=== PATIENT | male | born 1985 | race Caucasian/White ===

== ENCOUNTER 2017-09-24 07:19 | Emergency (ER) ==
[2017-09-24 07:26] VITALS: BP 116/90; TEMP 97.5; BMI 21.2
--- NOTE | 2017-09-24 07:31 | ED.PDOC ---
General ED Provider: Dr. BENY REHMAN Chief Complaint: Nausea/Vomiting Stated Complaint: 31 y/o Male patient presents with CC of Nausea and Vomiting- green bilious. Onset on afternoon of 09/23/17 and has 7-8 episodes. Also c/o pain in uppper back since emesis. Traveled to [facility] yesterday for Physician visit at [facility]. Was feeling well then but started to feel badly late yesterday afternoon. Time Seen by Physician: 07:20 Mode of Arrival: Walk-In Information Source: Patient, Family Exam Limitations: No limitations Primary Care Provider: BENY EDWARDS Nursing and Triage Documentation Reviewed and Agree: Yes Reviewed sepsis parameters & appropriate labs ordered?: No System Inflammatory Response Syndrome: Not Applicable Sepsis Protocol: For patient's 13 years and over: Temp is 96.8 and below OR 101 and greater Pulse >90 BPM Resp >20/minute Acutely Altered Mental Status Are patient's symptoms suggestive of a new infection, such as: -Pneumonia -Skin, Soft Tissue -Endocarditis -UTI -Bone, Joint Infection -Implantable Device -Acute Abdominal Infection -Wound Infection -Meningitis -Blood Stream Catheter Infection -Unknown System Inflammatory Response Syndrome: Not Applicable GI Complaint Exam - Vomiting/Diarrhea Complaint/Exam Onset/Duration: 1: 00 AM to day(7-8 hours ) Symptoms Are: Still present Episodes of Vomiting over last 24 Hours: 7 Episodes of Diarrhea Over Last 24 Hours: 0 Initial Severity: Moderate Current Severity: Severe Character of Vomiting: Reports: Bilious Alleviating: Reports: None Associated Signs and Symptoms: Reports: Dizziness, Abdominal pain (Mid Back ( Thoracic) Region ) Related History: Reports: Similar episode (None recent) Non-GI Risk Factors: Reports: None Surgical Obstruction Risk Factors: Reports: None Related Surgical History: Reports: None (Kidney Transplant) Abdominal Findings: Present: None Differential Diagnoses: Dehydration, UTI, Other (Viral Gastroenteritis/Flu Syndrome) Review of Systems - Review Of Systems Constitutional: Reports: Weakness, Loss of appetite Eyes: Reports: No symptoms Ears, Nose, Mouth, Throat: Reports: No symptoms Respiratory: Reports: No symptoms Cardiac: Reports: No symptoms GI: Reports: Nausea, Poor appetite, Poor fluid intake, Vomiting : Reports: No symptoms Musculoskeletal: Reports: Back pain Skin: Reports: No symptoms Neurological: Reports: Weakness Endocrine: Reports: No symptoms Hematologic/Lymphatic: Reports: No symptoms All Other Systems: Reviewed and Negative Past Medical History - Past Medical History Previously Healthy: No (Hx Chronic Kidney Disease/prev renal transplant) Endocrine: Reports: None Cardiovascular: Reports: None Respiratory: Reports: None Hematological: Reports: None Gastrointestinal: Reports: None Genitourinary: Reports: CKD, Other (renal transplant) Neuro/Psych: Reports: Migraine Musculoskeletal: Reports: None Cancer: Reports: None Other Pertinent Past Medical History: renal transplant, Recent Strep Throat - Surgical History General Surgical History: Reports: Other (Renal transplant as child, on Immunosupression), Unknown - Family History Family History: Reports: Unknown - Social History Smoking Status: Never smoker Hx Substance Use: No Alcohol Screening: None - Immunizations Tetanus Shot up to Date: Yes Pneumococcal Vaccine up to Date: No Physical Exam - Physical Exam Appearance: Ill-appearing, Thin Ill-appearing: Moderate Pain Distress: Moderate Eyes: LETICIA, EOMI, Conjunctiva clear ENT: Ears normal Neck: Supple Respiratory: Airway patent Cardiovascular: RRR, Pulses normal, No rub, No murmur GI/: Soft, Nontender, No masses, Bowel sounds normal Musculoskeletal: Normal strength, ROM intact, No edema, No calf tenderness Skin: Warm, Dry Neurological: Motor intact Psychiatric: Affect appropriate, Mood appropriate Re-Evaluation - Re-Evaluation Time of Re-Evaluation: 11:00 Status: Improved Vital Signs Stable: Yes Lungs: Clear Skin: Warm and Dry Neuro: Alert and Oriented X3 CV: RRR - Re-Evaluation Time of Re-Evaluation: 14:00 Status: Improved Vital Signs Stable: Yes Pain Level: Recurrent upper back muscular pain. Nausea better Appearance: NAD Skin: Warm and Dry Neuro: Alert and Oriented X3 CV: Other (Sipping on liquids keepin them down) Critical Care Note - Critical Care Note Total Time (mins): 120 Course - Course Hematology/Chemistry: 09/24/17 13:45 09/24/17 13:45 Orders, Labs, Meds: Lab Review 09/24/17 09/24/17 09/24/17 07:30 07:48 07:48 WBC 17.37 H RBC 6.18 H Hgb 17.1 Hct 50.0 MCV 80.9 MCH 27.7 MCHC 34.2 RDW Coeff of Ivonne 13.0 Plt Count 239 Immature Gran % (Auto) 0.6 Neut % (Auto) 84.0 Lymph % (Auto) 8.7 L [place] % (Auto) 5.9 Eos % (Auto) 0.5 Baso % (Auto) 0.3 Immature Gran # (Auto) 0.1 Neut # 14.6 H Lymph # 1.5 [place] # 1.0 Eos # 0.1 Baso # 0.1 Sodium 141 Potassium 3.9 Chloride 103 Carbon Dioxide 23 Anion Gap 18.9 BUN 14 Creatinine 1.40 H Estimated GFR (MDRD) 60.00 BUN/Creatinine Ratio 10.00 Glucose 105 H Calcium 10.5 H Total Bilirubin 0.7 AST 15 ALT 14 Alkaline Phosphatase 70 Total Protein 8.6 H Albumin 4.8 Globulin 3.8 Albumin/Globulin Ratio 1.26 Lipase 11 Urine Color Urine Clarity Urine pH Ur Specific [place] Urine Protein Urine Glucose (UA) Urine Ketones Urine Blood Urine Nitrite Urine Bilirubin Urine Urobilinogen Ur Leukocyte Esterase Urine Microscopic RBC Urine Microscopic WBC Ur Squamous Epith Cells Influenza A (Rapid) Negative by naat Influenza B (Rapid) Negative by naat 09/24/17 09/24/17 09/24/17 12:34 13:45 13:45 WBC 9.94 D RBC 4.99 Hgb 13.8 L D Hct 41.1 L D MCV 82.4 MCH 27.7 MCHC 33.6 RDW Coeff of Ivonne 13.0 Plt Count 168 Immature Gran % (Auto) 0.5 Neut % (Auto) 90.3 Lymph % (Auto) 3.2 L [place] % (Auto) 5.7 Eos % (Auto) 0.2 Baso % (Auto) 0.1 Immature Gran # (Auto) 0.1 Neut # 9.0 H Lymph # 0.3 L [place] # 0.6 Eos # 0.0 Baso # 0.0 Sodium 143 Potassium 4.6 Chloride 111 H Carbon Dioxide 23 Anion Gap 13.6 BUN 15 Creatinine 1.22 H Estimated GFR (MDRD) 70.00 BUN/Creatinine Ratio 12.29 Glucose 122 H Calcium 8.4 Total Bilirubin AST ALT Alkaline Phosphatase Total Protein Albumin Globulin Albumin/Globulin Ratio Lipase Urine Color Yellow Urine Clarity Clear Urine pH 5.5 Ur Specific [place] 1.025 Urine Protein 1+ Urine Glucose (UA) Negative Urine Ketones Negative Urine Blood Negative Urine Nitrite Negative Urine Bilirubin Negative Urine Urobilinogen 0.2 Ur Leukocyte Esterase Negative Urine Microscopic RBC 0-2 Urine Microscopic WBC 0-2 Ur Squamous Epith Cells 0-2 Influenza A (Rapid) Influenza B (Rapid) Orders Category Date Time Status EKG-(ED ONLY) Stat CARDIO 09/24/17 13:40 Completed BMP [BASIC METABOLIC PANEL] Stat LAB 09/24/17 13:45 Completed CBC W/ AUTO DIFF Stat LAB 09/24/17 07:48 Completed CBC W/ AUTO DIFF Stat LAB 09/24/17 13:45 Completed CMP [COMPREHENSIVE METABOLIC PANEL] Stat LAB 09/24/17 07:48 Completed FLU A/B MOLECULAR Stat LAB 09/24/17 07:30 Completed LIPASE Stat LAB 09/24/17 07:48 Completed MOLECULAR GROUP A STREP Stat LAB 09/24/17 07:30 Completed UA [URINALYSIS C & S IF INDICATED] Stat LAB 09/24/17 12:34 Completed Dextrose 5 % and 0.9 % NaCl [Dextrose 5%-Ns IV Solution MEDS 09/24/17 09:30 Discontinued ] 1,000 ml Vitamin B-1 Inj [Thiamine] 100 mg Mvi, Adult No.1 with Vit K [Infuvite Adult] 10 ml Folic Acid 1 mg IV 250 mls/hr Dextrose 5 % and 0.9 % NaCl [Dextrose 5%-Ns IV Solution MEDS 09/24/17 16:06 Ordered ] 1,000 ml Vitamin B-1 Inj [Thiamine] 100 mg Mvi, Adult No.1 with Vit K [Infuvite Adult] 10 ml Folic Acid 1 mg IV 500 mls/hr Dextrose 5 % and 0.9 % NaCl [Dextrose 5%-Ns IV Solution MEDS 09/24/17 13:34 Active ] 1,000 ml IV BOLUS Famotidine Inj [Pepcid] MEDS 09/24/17 08:33 Discontinued 20 mg .ROUTE .STK-MED ONE Famotidine Inj [Pepcid] 20 mg MEDS 09/24/17 08:19 Discontinued 0.9 % Sodium Chloride [Sodium Chloride] 50 ml IV ONCE Hydrocortisone Sod Succ/Pf [Solu-Cortef 100 mg] MEDS 09/24/17 10:49 Discontinued 100 mg IVP ONCE STA Hydromorphone HCl [Dilaudid 1 mg/ml Syringe] MEDS 09/24/17 08:10 Discontinued 0.5 mg IVP ONCE STA Hydromorphone HCl [Dilaudid 1 mg/ml Syringe] MEDS 09/24/17 14:25 Discontinued 0.5 mg IVP ONCE STA Hydromorphone HCl [Dilaudid 1 mg/ml Syringe] MEDS 09/24/17 10:32 Discontinued 1 mg IVP ONCE STA Ondansetron HCl/Pf [Zofran 4 mg/2 ml] MEDS 09/24/17 08:16 Discontinued 4 mg IVP ONCE ONE Ondansetron HCl/Pf [Zofran 4 mg/2 ml] MEDS 09/24/17 13:37 Discontinued 4 mg IVP ONCE STA Ondansetron HCl/Pf [Zofran 4 mg/2 ml] MEDS 09/24/17 07:39 Discontinued 4 mg IVP Q6H PRN Pantoprazole Sodium [Protonix IV] MEDS 09/24/17 10:34 Discontinued 40 mg IVP ONCE STA Sodium Chloride 0.9% [Sodium Chloride] 1,000 ml MEDS 09/24/17 07:40 Discontinued IV BOLUS Sumatriptan Succinate [Imitrex] MEDS 09/24/17 12:52 Discontinued 6 mg SUBCUT ONCE STA Medications Generic Name Dose Route Start Last Admin Trade Name Freq PRN Reason Stop Dose Admin Dextrose/Sodium Chloride 1,000 mls @ 250 mls/hr 09/24/17 13:34 09/24/17 13:47 Dextrose 5%-Ns Iv Solution IV 09/24/17 17:33 250 mls/hr BOLUS STA Administration Thiamine HCl 100 mg/ 1,011.2 mls @ 500 mls/hr 09/24/17 16:06 Multivitamins/Minerals 10 ml/ IV Folic Acid 1 mg/ Dextrose/ .Q2H2M SHANON Sodium Chloride Discontinued Medications Generic Name Dose Route Start Last Admin Trade Name Freq PRN Reason Stop Dose Admin Hydrocortisone Sodium Succinate 100 mg 09/24/17 10:49 09/24/17 10:57 Solu-Cortef 100 Mg IVP 09/24/17 10:50 100 mg ONCE STA Administration Hydromorphone HCl 0.5 mg 09/24/17 08:10 09/24/17 08:31 Dilaudid 1 Mg/Ml Syringe IVP 09/24/17 08:11 0.5 mg ONCE STA Administration Hydromorphone HCl 1 mg 09/24/17 10:32 09/24/17 10:39 Dilaudid 1 Mg/Ml Syringe IVP 09/24/17 10:33 1 mg ONCE STA Administration Hydromorphone HCl 0.5 mg 09/24/17 14:25 09/24/17 14:48 Dilaudid 1 Mg/Ml Syringe IVP 09/24/17 14:26 0.5 mg ONCE STA Administration Sodium Chloride 1,000 mls @ 500 mls/hr 09/24/17 07:40 09/24/17 07:46 Sodium Chloride IV 09/24/17 09:39 500 mls/hr BOLUS STA Administration Famotidine 20 mg/ Sodium 52 mls @ 100 mls/hr 09/24/17 08:19 09/24/17 08:39 Chloride IV 09/24/17 08:50 2 mls/hr ONCE STA Administration Thiamine HCl 100 mg/ 1,011.2 mls @ 250 mls/hr 09/24/17 09:30 09/24/17 09:47 Multivitamins/Minerals 10 ml/ IV 250 mls/hr Folic Acid 1 mg/ Dextrose/ .Q4H3M SHANON Administration Sodium Chloride Ondansetron HCl 4 mg 09/24/17 07:39 09/24/17 07:46 Zofran 4 Mg/2 Ml IVP 4 mg Q6H PRN Administration Nausea / Vomiting Ondansetron HCl 4 mg 09/24/17 08:16 09/24/17 08:28 Zofran 4 Mg/2 Ml IVP 09/24/17 08:17 4 mg ONCE ONE Administration Ondansetron HCl 4 mg 09/24/17 13:37 09/24/17 13:46 Zofran 4 Mg/2 Ml IVP 09/24/17 13:38 4 mg ONCE STA Administration Pantoprazole Sodium 40 mg 09/24/17 10:34 09/24/17 10:39 Protonix Iv IVP 09/24/17 10:35 40 mg ONCE STA Administration Sumatriptan Succinate 6 mg 09/24/17 12:52 09/24/17 13:00 Imitrex SUBCUT 09/24/17 12:53 6 mg ONCE STA Administration Vital Signs: Temp Pulse Resp BP Pulse Ox 09/24/17 07:19 97.5 F L 105 H 20 116/90 100 Departure - Departure Time of Disposition: 17:00 Disposition: HOME SELF-CARE Discharge Problem: Gastroenteritis, Dehydration Instructions: Dehydration (ED), Gastroenteritis (ED) Condition: Good Pt referred to PMD for follow-up: Yes (1week) IPMP verified?: No Prescriptions: Diazepam 2 mg PO 2-3XD PRN #20 tablet PRN Reason: Back pain and muscle spasm Famotidine [Pepcid] 20 mg PO BIDAC #20 tablet Ondansetron [Zofran Odt] 4 mg PO Q8H #10 tab.rapdis Allergies/Adverse Reactions: Allergies No Known Allergies Allergy (Verified 09/24/17 07:29) Home Medications: Ambulatory Orders Hydrocortisone [Cortef] 2 tab PO TID 06/21/13 Mycophenolate Mofetil [Cellcept] 500 mg PO BID 06/21/13 Tacrolimus [Prograf] 3 tab PO BID 06/21/13 Sumatriptan Succinate [Imitrex] 50 mg PO BID PRN 01/08/14 Hydrocodone/Acetaminophen [Lortab 5-325 mg Tablet] 5 - 325 mg PO Q6H PRN Diazepam 2 mg PO 2-3XD PRN #20 tablet 09/24/17 Famotidine [Pepcid] 20 mg PO BIDAC #20 tablet 09/24/17 Ondansetron [Zofran Odt] 4 mg PO Q8H #10 tab.rapdis 09/24/17 Disposition Discussed With: Patient, Family
[2017-09-24] MEDS ORDERED: ZOFRAN 4 MG/2 ML IVP PRN (07:39)
[2017-09-24] MEDS ORDERED: SODIUM CHLORIDE 1,000 ML IV STA ×2 (07:40→08:54)
[2017-09-24] MEDS ORDERED: DILAUDID 1 MG/ML SYRINGE IVP STA ×3 (08:10→14:25)
[2017-09-24] MEDS ORDERED: ZOFRAN 4 MG/2 ML IVP ONE (08:16)
[2017-09-24] MEDS ORDERED: PEPCID 20 MG in SODIUM CHLORIDE 50 ML IV STA (08:19)
[2017-09-24] MEDS ORDERED: PEPCID ONE (08:33)
[2017-09-24] MEDS ORDERED: THIAMINE 100 MG, INFUVITE ADULT 10 ML, FOLIC ACID 1 MG in DEXTROSE 5%-NS IV SOLUTION 1,... IV SCH ×2 (09:30→16:06)
[2017-09-24] MEDS ORDERED: PROTONIX IV IVP STA (10:34)
[2017-09-24] MEDS ORDERED: SOLU-CORTEF 100 MG IVP STA (10:49)
[2017-09-24] MEDS ORDERED: IMITREX SUBCUT STA (12:52)
[2017-09-24] MEDS ORDERED: DEXTROSE 5%-NS IV SOLUTION 1,000 ML IV STA (13:34)
[2017-09-24] MEDS ORDERED: ZOFRAN 4 MG/2 ML IVP STA (13:37)
== END 2017-09-24 17:15 | disposition home or self-care (01) ==
LOC: ED 07:19
DX: K52.9 Noninfective gastroenteritis and colitis, unspecified (principal); E86.0 Dehydration; N18.9 Chronic kidney disease, unspecified; Z94.0 Kidney transplant status; Z79.899 Other long term (current) drug therapy
CPT/HCPCS: 36415; 80048; 80053; 81001; 83690; 85025; 87502; 87651; 93005; 93010; 96361; 96365; 96372; 96374; 96375; 96376; 99284

== ENCOUNTER 2018-04-24 12:53 | Emergency (ER) ==
[2018-04-24 12:54] VITALS: BMI 21.2
[2018-04-24 13:01] VITALS: BP 144/92; TEMP 98.2
[2018-04-24] MEDS ORDERED: ZOFRAN 4 MG/2 ML IM STA ×2 (13:03→15:06)
[2018-04-24] MEDS ORDERED: MORPHINE 4 MG/ML SYRINGE IM STA ×2 (13:03→14:53)
--- NOTE | 2018-04-24 14:16 | CT ---
EXAM: CT abdomen pelvis without contrast HISTORY: Left lower quadrant pain. Patient has renal transplant and prior cholecystectomy COMPARISON: CT abdomen pelvis 05/14/2015 and 01/08/2014 TECHNIQUE: Serial axial images of the abdomen pelvis were performed from the lung bases through the inferior pelvis without contrast. These were viewed in multiple planes. FINDINGS: The lung bases are clear. Evaluation is limited due to lack of contrast. There is bilateral renal atrophy. There is a 2.2 cm low attenuation lesion in the left kidney with indeterminate Hounsfield units. This is a developed s ayanna 2014. The liver is unremarkable. The bladder has been resected. The spleen is normal. Adrena l glands are unremarkable. The pancreas is unremarkable. The stomach is mildly distended. Transplan t kidney is unremarkable. The small bowel in the abdomen pelvis demonstrates scattered low attenuation fluid throughout the sma ll bowel. The colon demonstrates diverticulosis without diverticulitis. The appendix is not visuali zed. Urinary bladder is mildly distended. The prostate is mildly enlarged. The osseous structures are unremarkable. IMPRESSION: 1. No acute intra-abdominal abnormality to account for patient's symptoms. 2. Renal atrophy with new indeterminate lesion in the left kidney. Ultrasound is recommended to fur ther evaluate. Transplant kidney is unremarkable. 3. Diverticulosis without diverticulitis.
[2018-04-24] MEDS ORDERED: ZOFRAN 4 MG/2 ML IVP STA (14:52)
--- NOTE | 2018-04-24 14:54 | ED.PDOC ---
General ED Provider: Dr. DORI MEDINA Chief Complaint: Abdominal Pain Stated Complaint: LLQ ABDOMINAL Time Seen by Physician: 13:00 (SEEN WITH VIJAYA ) Mode of Arrival: Walk-In Information Source: Patient Exam Limitations: No limitations Primary Care Provider: BENY EDWARDS Nursing and Triage Documentation Reviewed and Agree: Yes Does patient meet sepsis criteria?: No System Inflammatory Response Syndrome: Not Applicable Sepsis Protocol: For patient's 13 years and over: Temp is 96.8 and below OR 101 and greater Pulse >90 BPM Resp >20/minute Acutely Altered Mental Status Are patient's symptoms suggestive of a new infection, such as: -Pneumonia -Skin, Soft Tissue -Endocarditis -UTI -Bone, Joint Infection -Implantable Device -Acute Abdominal Infection -Wound Infection -Meningitis -Blood Stream Catheter Infection -Unknown GI Complaint Exam - Abdominal Pain Complaint/Exam Onset: Gradual Duration: LAST NIGHT WENT AWAY CAME BACK THIS MORNING NO TRAUMA NO URINARY SYMPTOMS Symptoms Are: Still present Initial Severity: Moderate Current Severity: Moderate Location of Pain: LLQ Radiates To: Denies: Chest, Back, Flank, LLQ, RLQ, Inguinal Character: Reports: Cramping Aggravating: Reports: None Alleviating: Reports: None Associated Signs and Symptoms: Denies: Diaphoresis, Fever, Cough, Chest pain, Dizziness, Back pain, Constipation, Blood in stool, Dysuria, Urinary frequency, Decreased urine output, Decreased appetite, Discharge, Nausea, Vomiting, Diarrhea, Decreased activity AAA Risk Factors: Reports: None Cardiac Risk Factors: Reports: None Testicular Torsion Risk Factors: Reports: None (DENIED SCROTAL PAIN AND DISCOMFORT VIJAYA YOUNGBLOOD RN AT BED SIDE ) Surgical Obstruction Risk Factors: Reports: None Related Surgical History: Reports: None (S/P KIDNEY TRANSPLANT) Abdominal Findings: Present: None Differential Diagnoses: Appendicitis, Bowel Obstruction, Constipation, Diverticulitis, Renal Colic, UTI Review of Systems - Review Of Systems Constitutional: Reports: No symptoms Eyes: Reports: No symptoms Ears, Nose, Mouth, Throat: Reports: No symptoms Respiratory: Reports: No symptoms Cardiac: Reports: No symptoms GI: Reports: Abdominal pain : Reports: No symptoms Musculoskeletal: Reports: No symptoms Skin: Reports: No symptoms Neurological: Reports: No symptoms Endocrine: Reports: No symptoms Hematologic/Lymphatic: Reports: No symptoms All Other Systems: Reviewed and Negative Past Medical History - Past Medical History Previously Healthy: No (Hx Chronic Kidney Disease/prev renal transplant) Endocrine: Reports: None Cardiovascular: Reports: None Respiratory: Reports: None Hematological: Reports: None Gastrointestinal: Reports: None Genitourinary: Reports: CKD, Other (renal transplant) Neuro/Psych: Reports: Migraine Musculoskeletal: Reports: None Cancer: Reports: None Other Pertinent Past Medical History: renal transplant, Recent Strep Throat - Surgical History General Surgical History: Reports: Other (Renal transplant as child, on Immunosupression), Unknown - Family History Family History: Reports: Unknown - Social History Smoking Status: Never smoker Hx Substance Use: No Alcohol Screening: None - Immunizations Pneumococcal Vaccine up to Date: No Physical Exam - Physical Exam Appearance: Well-appearing, No pain distress, Well-nourished Eyes: LETICIA, EOMI, Conjunctiva clear ENT: Ears normal, Nose normal, Oropharynx normal Respiratory: Airway patent, Breath sounds clear, Breath sounds equal, Respirations nonlabored Cardiovascular: RRR, Pulses normal, No rub, No murmur GI/: Soft, Nontender, No masses, Bowel sounds normal, No Organomegaly Musculoskeletal: Normal strength, ROM intact, No edema, No calf tenderness Skin: Warm, Dry, Normal color Neurological: Sensation intact, Motor intact, Reflexes intact, Cranial nerves intact, Alert, Oriented Psychiatric: Affect appropriate, Mood appropriate Interpretation - Radiology Interpretation Radiology Interpretation By: Radiologist Radiology Results: No acute changes (RENAL ATROPHY BUT TRANSPLANTED KINEY IS NOT ATROPHIED) Re-Evaluation - Re-Evaluation Time of Re-Evaluation: 14:59 (CONTACTED PMD MAY GO HOME WITH PAIN MEDS WITH CLOSE FOLLOW UP IN AM) Status: Improved Vital Signs Stable: Yes Pain Level: HAS SOME PAIN Appearance: NAD Lungs: Clear Skin: Warm and Dry Neuro: Alert and Oriented X3 CV: RRR Additional Comments: DENIED PAIN IN THE TESTIS OR SCROTAL AREA Critical Care Note - Critical Care Note Total Time (mins): 0 Course - Course Hematology/Chemistry: 04/24/18 13:15 04/24/18 13:15 Orders, Labs, Meds: Lab Review 04/24/18 04/24/18 04/24/18 13:10 13:15 13:15 WBC 9.82 RBC 5.27 Hgb 14.5 Hct 43.5 MCV 82.5 MCH 27.5 MCHC 33.3 RDW Coeff of Ivonne 12.8 Plt Count 216 Immature Gran % (Auto) 0.4 Neut % (Auto) 76.6 Lymph % (Auto) 14.9 [place] % (Auto) 7.1 Eos % (Auto) 0.6 Baso % (Auto) 0.4 Immature Gran # (Auto) 0.0 Neut # (Auto) 7.5 H Lymph # (Auto) 1.5 [place] # (Auto) 0.7 Eos # (Auto) 0.1 Baso # (Auto) 0.0 Sodium 139 Potassium 4.0 Chloride 103 Carbon Dioxide 30 Anion Gap 10.0 BUN 13 Creatinine 1.15 H Estimated GFR (MDRD) 74.00 BUN/Creatinine Ratio 11.30 Glucose 105 Calcium 10.0 Total Bilirubin 0.4 AST 22 ALT 15 Alkaline Phosphatase 68 Total Protein 7.8 Albumin 4.5 Globulin 3.3 Albumin/Globulin Ratio 1.36 Urine Color Yellow Urine Clarity Clear Urine pH 7.0 Ur Specific [place] 1.020 Urine Protein Negative Urine Glucose (UA) Negative Urine Ketones Negative Urine Blood Negative Urine Nitrite Negative Urine Bilirubin Negative Urine Urobilinogen 0.2 Ur Leukocyte Esterase Negative Orders Category Date Time Status CBC W/ AUTO DIFF Stat LAB 04/24/18 13:15 Completed COMPREHENSIVE METABOLIC PANEL Stat LAB 04/24/18 13:15 Completed URINALYSIS C & S IF INDICATED Stat LAB 04/24/18 13:10 Completed Morphine Sulfate [Morphine 4 mg/ml Syringe] MEDS 04/24/18 13:03 Discontinued 4 mg IM ONCE STA Morphine Sulfate [Morphine 4 mg/ml Syringe] MEDS 04/24/18 14:53 Discontinued 4 mg IM ONCE STA Ondansetron HCl/Pf [Zofran 4 mg/2 ml] MEDS 04/24/18 14:52 Discontinued 2 mg IVP ONCE STA Ondansetron HCl/Pf [Zofran 4 mg/2 ml] MEDS 04/24/18 13:03 Discontinued 4 mg IM ONCE STA CT ABD/PEL WO RENAL STONE PROT Stat RADS 04/24/18 13:03 Completed Medications Discontinued Medications Generic Name Dose Route Start Last Admin Trade Name Freq PRN Reason Stop Dose Admin Morphine Sulfate 4 mg 04/24/18 13:03 04/24/18 13:26 Morphine 4 Mg/Ml Syringe IM 04/24/18 13:04 4 mg ONCE STA Administration Morphine Sulfate 4 mg 04/24/18 14:53 Morphine 4 Mg/Ml Syringe IM 04/24/18 14:54 ONCE STA Ondansetron HCl 4 mg 04/24/18 13:03 04/24/18 13:22 Zofran 4 Mg/2 Ml IM 04/24/18 13:04 4 mg ONCE STA Administration Ondansetron HCl 2 mg 04/24/18 14:52 Zofran 4 Mg/2 Ml IVP 04/24/18 14:53 ONCE STA Vital Signs: Temp Pulse Resp BP Pulse Ox 04/24/18 12:54 98.2 F 79 20 144/92 H 99 Departure - Departure Time of Disposition: 15:00 Disposition: HOME SELF-CARE Discharge Problem: Abdominal pain Instructions: Abdominal Pain (ED) Condition: Good Pt referred to PMD for follow-up: Yes IPMP verified?: No Additional Instructions: Please call your Family Physician as soon as possible to schedule a follow-up appointment. Allergies/Adverse Reactions: Allergies No Known Allergies Allergy (Verified 04/24/18 13:27) Home Medications: Ambulatory Orders Hydrocortisone [Cortef] 2 tab PO TID 06/21/13 Mycophenolate Mofetil [Cellcept] 500 mg PO BID 06/21/13 Tacrolimus [Prograf] 3 tab PO BID 06/21/13 Sumatriptan Succinate [Imitrex] 50 mg PO BID PRN 01/08/14 Ondansetron [Zofran Odt] 4 mg PO Q8H PRN 04/24/18
== END 2018-04-24 15:46 | disposition home or self-care (01) ==
LOC: ED 12:53
DX: R10.32 Left lower quadrant pain (principal); Z94.0 Kidney transplant status; N18.9 Chronic kidney disease, unspecified; Z79.899 Other long term (current) drug therapy
CPT/HCPCS: 36415; 74176; 80053; 81001; 85025; 96372; 99283

== ENCOUNTER 2018-04-27 10:10 | Outpatient (CLI) ==
--- NOTE | 2018-04-27 11:29 | US ---
EXAM: RENAL ULTRASOUND, BILATERAL HISTORY: Abnormal CT indicating indeterminate left renal mass. Right-sided renal transplant. FINDINGS: Ultrasound renal, bilateral. Carson-scale ultrasound and color Doppler imaging was performe d. The right koi kidney measures 6.6 x 2.7 x 2.6 centimeters. The left koi kidney measures 6.8 x 3.4 x 3.0 centimeters. The koi kidneys are atrophic. There is an upper medial left renal cortical cystic mass which appe ars to represent the focus of interest on recent CT. Review of old exams reveal only slight enlargeme nt of this entity since 05/14/2015 CT abdomen and pelvis. The entity is mostly new since an older CT of 2011. This is most likely a simple cyst. The upper right koi renal cortex also has a small c ystic mass which is difficult to fully characterize on this exam although probably represents a simpl e cyst. Transplant kidney on the right side measures 11.5 x 4.7 x 3.3 cm and has no evidence of hydronephrosi s or sonographic abnormality. The urinary bladder is grossly unremarkable. IMPRESSION: Upper left renal cortical mass seen on recent CT is most consistent with a simple cyst.
== END 2018-04-27 10:11 | disposition home or self-care (01) ==
LOC: RAD 10:10
PROVIDERS: ATTEND Family Medicine
DX: R93.429 Abnormal radiologic findings on diagnostic imaging of unspecified kidney (principal)

== ENCOUNTER 2018-10-31 12:57 | Emergency (ER) ==
[2018-10-31 13:09] VITALS: BP 135/85; TEMP 97.4
[2018-10-31] MEDS ORDERED: DEXTROSE 5%-NS IV SOLUTION 1,000 ML IV STA (13:20)
[2018-10-31] MEDS ORDERED: ZOFRAN 4 MG/2 ML IVP STA (13:21)
--- NOTE | 2018-10-31 13:21 | ED.PDOC ---
General ED Provider: Dr. BENY MEZA MD Chief Complaint: Nausea/Vomiting Stated Complaint: vomited today plus diarrhea Time Seen by Physician: 13:12 Mode of Arrival: Walk-In Information Source: Patient Exam Limitations: No limitations Primary Care Provider: BENY EDWARDS Nursing and Triage Documentation Reviewed and Agree: Yes Does patient meet sepsis criteria?: No If yes, has appropriate treatment been initiated?: Yes System Inflammatory Response Syndrome: Not Applicable Sepsis Protocol: For patient's 13 years and over: Temp is 96.8 and below OR 101 and greater Pulse >90 BPM Resp >20/minute Acutely Altered Mental Status Are patient's symptoms suggestive of a new infection, such as: -Pneumonia -Skin, Soft Tissue -Endocarditis -UTI -Bone, Joint Infection -Implantable Device -Acute Abdominal Infection -Wound Infection -Meningitis -Blood Stream Catheter Infection -Unknown Review of Systems - Review Of Systems Constitutional: Reports: No symptoms Eyes: Reports: No symptoms Ears, Nose, Mouth, Throat: Reports: No symptoms Respiratory: Reports: No symptoms Cardiac: Reports: No symptoms GI: Reports: Nausea (vomit x one today.) : Reports: No symptoms Musculoskeletal: Reports: No symptoms Skin: Reports: No symptoms Neurological: Reports: No symptoms Endocrine: Reports: No symptoms Hematologic/Lymphatic: Reports: No symptoms All Other Systems: Reviewed and Negative Past Medical History - Past Medical History Previously Healthy: No (Hx Chronic Kidney Disease/prev renal transplant) Endocrine: Reports: None Cardiovascular: Reports: None Respiratory: Reports: None Hematological: Reports: None Gastrointestinal: Reports: None Genitourinary: Reports: CKD, Other (renal transplant) Neuro/Psych: Reports: Migraine Musculoskeletal: Reports: None Cancer: Reports: None Other Pertinent Past Medical History: renal transplant, Recent Strep Throat - Surgical History General Surgical History: Reports: Other (Renal transplant as child, on Immunosupression), Unknown - Family History Family History: Reports: Unknown - Social History Smoking Status: Never smoker Hx Substance Use: No Alcohol Screening: None - Immunizations Pneumococcal Vaccine up to Date: No Physical Exam - Physical Exam Appearance: Ill-appearing Ill-appearing: Mild Pain Distress: None Eyes: LETICIA, EOMI, Conjunctiva clear ENT: Ears normal, Nose normal, Oropharynx normal Neck: Supple Respiratory: Airway patent, Breath sounds clear, Breath sounds equal, Respirations nonlabored Cardiovascular: RRR GI/: Soft, Nontender, No masses, Bowel sounds normal, Bowel sounds hypoactive Musculoskeletal: Normal strength, ROM intact, No edema, No calf tenderness Skin: Warm, Dry, Normal color Neurological: Sensation intact, Motor intact, Reflexes intact, Cranial nerves intact, Alert, Oriented Critical Care Note - Critical Care Note Total Time (mins): 0 Course - Course Hematology/Chemistry: 10/31/18 13:30 10/31/18 13:30 Orders, Labs, Meds: Lab Review 10/31/18 10/31/18 13:30 13:30 WBC 12.03 H RBC 5.71 Hgb 15.6 Hct 48.3 MCV 84.6 MCH 27.3 MCHC 32.3 RDW Coeff of Ivonne 13.3 Plt Count 214 Immature Gran % (Auto) 0.3 Neut % (Auto) 78.4 Lymph % (Auto) 7.7 L [place] % (Auto) 9.2 Eos % (Auto) 4.2 Baso % (Auto) 0.2 Immature Gran # (Auto) 0.0 Neut # (Auto) 9.4 H Lymph # (Auto) 0.9 [place] # (Auto) 1.1 Eos # (Auto) 0.5 Baso # (Auto) 0.0 Sodium 139.5 Potassium 4.26 Chloride 103.2 Carbon Dioxide 25.7 Anion Gap 14.86 BUN 20.3 H Creatinine 1.32 H Estimated GFR (MDRD) 63.00 BUN/Creatinine Ratio 15.37 Glucose 93.7 Calcium 10.14 Orders Category Date Time Status IV ACCESS ONCE CARE 10/31/18 13:20 Active BMP [BASIC METABOLIC PANEL] Stat LAB 10/31/18 13:30 Completed CBC W/ AUTO DIFF Stat LAB 10/31/18 13:30 Completed Dextrose 5 % and 0.9 % NaCl [Dextrose 5%-Ns IV Solution MEDS 10/31/18 13:20 Discontinued ] 1,000 ml IV BOLUS Ondansetron HCl/Pf [Zofran 4 mg/2 ml] MEDS 10/31/18 13:21 Discontinued 4 mg IVP ONCE STA Medications Discontinued Medications Generic Name Dose Route Start Last Admin Trade Name Freq PRN Reason Stop Dose Admin Dextrose/Sodium Chloride 1,000 mls @ 1,000 mls/hr 10/31/18 13:20 10/31/18 13: 46 Dextrose 5%-Ns Iv Solution IV 03/19/19 14:19 1,000 mls/hr BOLUS STA Administration Ondansetron HCl 4 mg 10/31/18 13:21 10/31/18 13:46 Zofran 4 Mg/2 Ml IVP 10/31/18 13:22 4 mg ONCE STA Administration Vital Signs: Temp Pulse Resp BP Pulse Ox 10/31/18 12:58 97.4 F L 112 H 20 135/85 99 Departure - Departure Time of Disposition: 14:48 Disposition: HOME SELF-CARE Discharge Problem: Gastroenteritis Instructions: Gastroenteritis (ED) Condition: Good Pt referred to PMD for follow-up: Yes IPMP verified?: No Allergies/Adverse Reactions: Allergies No Known Allergies Allergy (Verified 10/31/18 13:06) Home Medications: Ambulatory Orders Hydrocortisone [Cortef] 2 tab PO TID 06/21/13 Mycophenolate Mofetil [Cellcept] 500 mg PO BID 06/21/13 Tacrolimus [Prograf] 3 tab PO BID 06/21/13 Sumatriptan Succinate [Imitrex] 50 mg PO BID PRN 01/08/14 Ondansetron [Zofran Odt] 4 mg PO Q8H PRN 04/24/18 Transfer Form Completed: No Disposition Discussed With: Patient, Family
== END 2018-10-31 14:55 | disposition home or self-care (01) ==
LOC: ED 12:57
DX: R11.2 Nausea with vomiting, unspecified (principal); R19.7 Diarrhea, unspecified; K52.9 Noninfective gastroenteritis and colitis, unspecified
CPT/HCPCS: 36415; 80048; 85025; 96361; 96374; 99283